=== PATIENT | female | born 1970 | race Two or more races ===

== ENCOUNTER 2025-09-08 02:15 | Emergency (ER) | payer OTHER ==
[~2025-09-08] VITALS: Ht 167.6 cm; Wt 81.6 kg
[2025-09-08] MEDS ORDERED: NEURONTIN300 MG PO (02:28)
[2025-09-08] MEDS ORDERED: TRICOR145 MG PO (02:29)
[2025-09-08] MEDS ORDERED: ADULT LOW DOSE81 M1 PO (02:29)
[2025-09-08] MEDS ORDERED: ZESTRIL2.5 MG PO (02:29)
[2025-09-08] MEDS ORDERED: TOPROL XL25 M1 PO (02:29)
[2025-09-08] MEDS ORDERED: MORPHINE SULFATE 4 MG/ML CARTRIDGE IV STA (02:55)
[2025-09-08] MEDS ORDERED: FAMOTIDINE/PF 20 MG/2 ML VIAL ONE (02:58)
[2025-09-08] MEDS ORDERED: RINGERS SOLUTION,LACTATED 1,000 ML IV SCH (03:00)
[2025-09-08 03:25] LABS: BASO % 0.1 % (0.1-1.2); EOS # 0.21 (0.04-0.54); EOS % 2.5 % (0.7-7.0); LYMPH # 0.89 (1.18-3.74); LYMPH % 10.7 % (19.3-53.1); MEAN PLATELET VOLUME 10.00 fl (9.4-12.4); MONO # 0.61 (0.24-0.82); MONO % 7.3 % (4.7-12.5); NEUT # 6.56 (1.56-6.13); NEUT % 78.9 % (34.0-71.1); RED CELL DISTRIBUTION WIDTH 12.0 % (11.6-14.4)
[2025-09-08 03:56] LABS: ALT/SGPT 44.0 U/L (12-78); AST/SGOT 34.0 U/L (15-37); BILIRUBIN TOTAL 0.71 mg/dL (0.3-1.2); BILIRUBIN,CONJUGATED 0.23 mg/dL (0.0-0.2); BUN CREA RATIO 14.0 (7.0-25.0); CREATININE SERUM 0.98 mg/dL (0.55-1.02); GFR 58.71; GLOBULINA 3.5 G/DL (2.4-3.5); GLUCOSE FASTING 144.0 mg/dL (65-100); LDH 181.0 U/L (84-246); OSMOLALITY SERUM 282.0 MOSM/KG (275-295)
[2025-09-08 04:08] LABS: INR 1.0
[2025-09-08 04:19] LABS: URINE APPEARANCE Clear; URINE BILIRRUBIN Negative (NEGATIVE); URINE BLOOD Negative; URINE COLOR Yellow; URINE GLUCOSE Negative (NEGATIVE); URINE KETONE Negative (NEGATIVE); URINE LEUKOCYTE Trace; URINE NITRATE Negative; URINE PROTEIN Negative (NEGATIVE); URINE UROBILINOGEN 1.0 E.U./dl
[2025-09-08 04:22] LABS: TYPE CELLS SQUAMOUS; URINE BACTERIA 20.3 uL (0.0-1933); URINE CAST 0.00 uL (0.0-1.40); URINE EPITHELIAL CELLS 6.6 uL (0.0-38.8); URINE RBC 7.9 uL (0.0-20.8); URINE WBC 10.9 uL (0.0-23.2)
[2025-09-08] MEDS ORDERED: CEFTRIAXONE SODIUM 1,000 MG VIAL IM STA (04:58)
[2025-09-08] MEDS ORDERED: CEFTRIAXONE SODIUM 1,000 MG VIAL ONE (05:24)
== END 2025-09-08 09:18 | disposition home or self-care (01) ==
LOC: ER
PROVIDERS: Physician Assistant Medical
DX: N39.0 Urinary tract infection, site not specified (principal); K85.90 Acute pancreatitis without necrosis or infection, unspecified; N20.0 Calculus of kidney; Z88.8 Allergy status to other drugs, medicaments and biological substances